=== PATIENT | male | born 1960 | race African-American/Black ===

== ENCOUNTER 2018-12-27 17:21 | Emergency (ER) | payer MEDICAID, OTHER ==
[~2018-12-27] VITALS: Ht 165.1 cm; Wt 95.0 kg
[2018-12-27] MEDS ORDERED: HYDROCODONE/ACETAMINOPHEN 5/325MG TABLET PO ONE (22:00)
[2018-12-27] MEDS ORDERED: IBUPROFEN 600MG TABLET PO ONE (22:00)
[2018-12-27 23:32] VITALS: BP 145/85
== END 2018-12-27 23:32 | disposition home or self-care (01) ==
LOC: ER 17:21
DX: S92.202A Fracture of unspecified tarsal bone(s) of left foot, initial encounter for closed fracture (principal); J45.909 Unspecified asthma, uncomplicated; Z88.5 Allergy status to narcotic agent; X58.XXXA Exposure to other specified factors, initial encounter; Y93.01 Activity, walking, marching and hiking; Y92.89 Other specified places as the place of occurrence of the external cause; Y99.8 Other external cause status
CPT/HCPCS: 73630; 99283; Z7610